=== PATIENT | female | born 1960 | race African-American/Black ===

== ENCOUNTER 2018-08-17 15:53 | Emergency (ER) | payer OTHER ==
[~2018-08-17] VITALS: Ht 172.7 cm; Wt 95.3 kg
[~2018-08-17 15:53] MED LIST: AZIT500T5 PO; CLAR10 PO; LOPE2CAP PO; OMEP20CA10 PO
[2018-08-17] MEDS ORDERED: KETOROLAC 60MG/2ML VIAL IM STA (16:53)
[2018-08-17 19:23] VITALS: BP 108/61
== END 2018-08-17 19:50 | disposition home or self-care (01) ==
LOC: ER 15:53
DX: M25.512 Pain in left shoulder (principal); M54.2 Cervicalgia; M54.5 Low back pain; R10.31 Right lower quadrant pain; M79.674 Pain in right toe(s); R20.0 Anesthesia of skin; Z96.649 Presence of unspecified artificial hip joint; V89.2XXA Person injured in unspecified motor-vehicle accident, traffic, initial encounter; Y93.89 Activity, other specified; Y92.411 Interstate highway as the place of occurrence of the external cause; Y99.8 Other external cause status
CPT/HCPCS: 72100; 72125; 72170; 73630; 96372; 99284; J1885